=== PATIENT | female | born 1950 | race African-American/Black ===

== ENCOUNTER 2024-04-22 09:02 | Inpatient (IN) | payer MEDICARE, MEDICAID ==
[~2024-04-22] VITALS: Ht 160 cm; Wt 65.8 kg
[2024-04-22 09:11] VITALS: O2SAT 98
[2024-04-22 11:53] LABS: EOSINOPHILS % 0.3 % (0.0-5.0); HEMOGLOBIN. 13.4 g/dL (12.0-16.0); LYMPHOCYTES % 18.3 % (20.0-50.0); MEAN CORPUSCULAR HEMOGLOBIN 27.9 pg (28.0-32.0); MEAN CORPUSCULAR HGB CONC 31.3 g/dL (31.0-37.0); MEAN CORPUSCULAR VOLUME 89.2 fL (81.0-99.0); MEAN PLATELET VOLUME 8.3 fl (7.4-10.4); MONOCYTES % 14.8 % (2.0-8.0); NEUTROPHILS % 65.6 % (40.0-76.0); PLATELET 218 x1000/uL (130-400); RED BLOOD CELL COUNT 4.82 mill/uL (4.2-5.4); RED CELL DISTRIBUTION WIDTH 14.3 % (11.6-14.6); WHITE BLOOD COUNT 3.2 x1000/uL (4.5-11.0)
[2024-04-22 12:01] LABS: CHLORIDE 105 mEq/L (98-107); POTASSIUM 4.2 mEq/L (3.5-5.1); SODIUM 139 mEq/L (136-145)
[2024-04-22 12:02] LABS: CALCIUM 9.3 mg/dL (8.7-10.4); CARBON DIOXIDE 23 mEq/L (21-32)
[2024-04-22 12:07] LABS: CREATININE 0.9 mg/dL (0.6-1.0); GLUCOSE 76 mg/dL (70-105)
[2024-04-22 12:08] LABS: UREA NITROGEN BLOOD 10 mg/dL (9-23)
[2024-04-22] MEDS ORDERED: MAGNESIUM/ALUMINUM HYDROXIDE/SIMETHICONE 30ML UDC PO PRN (14:15)
[2024-04-22] MEDS ORDERED: NA PHOS,M-B/NA PHOS,DI-BA ENEMA 118ML PR PRN (14:15)
[2024-04-22] MEDS ORDERED: CLONIDINE 0.1MG TABLET PO PRN (14:15)
[2024-04-22] MEDS ORDERED: DIPHENHYDRAMINE 50MG/ML VIAL IV PRN (14:15)
[2024-04-22] MEDS ORDERED: ONDANSETRON HCL 4MG/2ML INJ IV PRN (14:15)
[2024-04-22] MEDS ORDERED: GUAIFENESIN 200MG/10ML SUGAR FREE UDC PO PRN (14:15)
[2024-04-22] MEDS ORDERED: DOCUSATE SODIUM 100MG CAPSULE PO PRN (14:15)
[2024-04-22] MEDS ORDERED: ACETAMINOPHEN 325MG TABLET PO PRN ×2 (14:15)
[2024-04-22] MEDS ORDERED: IPRATROPIUM/ALBUTEROL 0.5-3(2.5)MG/3ML NEB HHN PRN (14:15)
[2024-04-22] MEDS: HYDRALAZINE 20MG/ML VIAL IV PRN (15:12)
[2024-04-22] MEDS: ENOXAPARIN 40MG/0.4ML SYR SUBCUT SCH (15:18)
[2024-04-22] MEDS: METOPROLOL SUCCINATE 50MG ER TABLET PO NR (15:41)
[2024-04-22 16:42] LABS: IRON 36 ug/dL (50-170)
[2024-04-22 16:45] LABS: TOTAL IRON BINDING CAPACITY 341 ug/dl (250-425)
[2024-04-22] MEDS: LABETALOL 5MG/ML 4ML INJ IV NR (17:31)
[2024-04-22 20:05] LABS: CLARITY URINE CLEAR (CLEAR); COLOR URINE YELLOW (YELLOW); GLUCOSE URINE NEGATIVE (NEGATIVE); KETONES URINE NEGATIVE (NEGATIVE); LEUKOCYTE ESTERASE URINE NEGATIVE (NEGATIVE); NITRITE URINE NEGATIVE (NEGATIVE); OCCULT BLOOD URINE NEGATIVE (NEGATIVE); PH URINE 6.5 (4.5-8.0); PROTEIN URINE NEGATIVE (NEGATIVE); SPECIFIC GRAVITY URINE 1.009 (1.005-1.030)
[2024-04-22 20:14] LABS: *AMPHETAMINES SCREEN URINE NEGATIVE (NEGATIVE); *BARBITURATES SCREEN URINE NEGATIVE (NEGATIVE); *BENZODIAZEPINES SCREEN URINE NEGATIVE (NEGATIVE); *COCAINE SCREEN URINE NEGATIVE (NEGATIVE); CANNABINOID URINE SCREEN NEGATIVE (NEGATIVE); ECSTASY MDMA SCREEN URINE NEGATIVE (NEGATIVE); METHADONE URINE SCREEN NEGATIVE (NEGATIVE); OPIATES URINE SCREEN NEGATIVE (NEGATIVE); PHENCYCLIDINE URINE SCREEN NEGATIVE (NEGATIVE)
[2024-04-22 20:26] LABS: BACTERIA URINE NONE SEEN; RBC URINE NONE SEEN /hpf (0-2); SQUAMOUS EPITHELIAL CELL URINE RARE /lpf (RARE/1+); WBC URINE NONE SEEN /hpf (0-2)
[2024-04-22 22:35] VITALS: BP 150/87; PULSE 87; RESP 18; TEMP 36.2
[2024-04-22 23:48] VITALS: BP 150/87; PULSE 87; RESP 18; TEMP 36.6; O2SAT 96
[2024-04-23] MEDS ORDERED: LORAZEPAM 0.5MG TABLET PO PRN (00:15)
[2024-04-23 08:00] VITALS: BP 156/58; PULSE 64; RESP 18; TEMP 35.8; O2SAT 100
[2024-04-23] MEDS ORDERED: FOLIC ACID 1MG TABLET PO SCH (09:00)
[2024-04-23] MEDS ORDERED: THIAMINE HCL 100MG TABLET PO SCH (09:00)
[2024-04-23] MEDS ORDERED: ASPIRIN 81MG EC TABLET PO SCH (09:00)
[2024-04-23] MEDS ORDERED: MULTIVITAMINS,THER W-MINERALS TABLET PO SCH (09:00)
[2024-04-23] MEDS ORDERED: METOPROLOL SUCCINATE 50MG ER TABLET PO SCH (09:00)
== END 2024-04-23 10:00 | disposition left against medical advice (07) | DRG 305 ==
LOC: ER 09:02 → 6EST 12:32 → EDBEDREQTM 16:04 → EDBEDREQ 16:04
PROVIDERS: ADMIT Hospitalist; ATTEND Hospitalist
DX: I16.0 Hypertensive urgency (principal); Z59.00 Homelessness unspecified; F03.90 Unspecified dementia, unspecified severity, without behavioral disturbance, psychotic disturbance, mood disturbance, and anxiety; D70.9 Neutropenia, unspecified; I10 Essential (primary) hypertension; Z53.29 Procedure and treatment not carried out because of patient's decision for other reasons; E78.00 Pure hypercholesterolemia, unspecified; J44.9 Chronic obstructive pulmonary disease, unspecified; F32.A Depression, unspecified; Z82.49 Family history of ischemic heart disease and other diseases of the circulatory system
CPT/HCPCS: 36415; 71045; 80048; 80305; 81003; 83540; 83550; 85025; 99285; A4606; C1893; J0360; J1650; J3490